=== PATIENT | female | born 1960 | race Hispanic/Latino ===

== ENCOUNTER 2017-12-25 10:21 | Outpatient (CLI) | payer MEDICARE ==
--- NOTE | 2017-12-25 12:16 | RAD ---
LATERAL AND FLEXION AND EXTENSION VIEWS OF THE LUMBAR SPINE: 12/25/2017 COMPARISON: 07/25/2015 FINDINGS: Three views of the lumbar spine demonstrate disk space height loss with some anterior osteophytes at L4-L5. No evidence of fractures or subluxations seen. No evidence of compression fracture seen. Estela mbar spine radiographs are unchanged since the previous exam from 07/25/2015. No evidence of acute c ompression fracture is seen. No evidence of vertebral body height loss is seen. Disk spaces are wel l maintained and unchanged. No evidence of anterolisthesis or retrolisthesis is seen on flexion or extension views. IMPRESSION: Stable three views of the lumbar spine with no evidence of anterolisthesis or retrolisthesis seen. POS: IFRAH
--- NOTE | 2017-12-25 13:02 | MRI ---
LUMBAR SPINE MRI WITHOUT CONTRAST: 12/25/2017 HISTORY: Bilateral leg pain. Lumbar spondylosis. COMPARISON: None. TECHNIQUE: Multiplanar, multisequence MR imaging of the lumbar spine is obtained without contrast. FINDINGS: The sagittal STIR imaging demonstrates no focal area of osseous marrow edema. Assuming five lumbar type vertebral bodies, the conus medullaris terminates at the T12-L1 level. No anterolisthesis or retrolisthesis is noted within the lumbar spine. T12-L1: Intervertebral disk height and signal intensity are within normal limits, with no significan t central canal or neural foraminal stenosis. L1-L2: Mild bilateral facet hypertrophy. Mild disk space narrowing and disk desiccation. No signif icant central canal or neural foraminal stenosis. L2-L3: Mild bilateral facet hypertrophy. Small left foraminal and post foraminal disk protrusion no tiffanie. Mild associated left neural foraminal stenosis. No central canal or right neural foraminal bren nosis. L3-L4: Mild bilateral facet hypertrophy. There is disk desiccation. There is an anterior annular t ear on the right. There is a foraminal and post foraminal disk protrusion on the left, with a mild degree of associated left neural foraminal stenosis. No significant central canal or right neural foraminal stenosis. L4-L5: There is disk space narrowing, disk desiccation, and disk bulge. There is prominent bilatera l facet hypertrophy, right greater than left. There is a moderate degree of central canal stenosis. There is moderate-severe right neural foraminal stenosis and mild left neural foraminal stenosis. L5-S1: Intervertebral disk height and signal intensity are within normal limits. Moderate bilateral facet hypertrophy. Mild/moderate right neural foraminal stenosis and mild left neural foraminal bren nosis. Mild central canal stenosis. The imaged retroperitoneal structures are grossly unremarkable. IMPRESSION: Multilevel lumbar spine degenerative change, most significant at the L4-L5 level, as detailed above. POS: OFF
== END 2017-12-25 10:22 | disposition home or self-care (01) ==
LOC: TBSIIMAG 10:21
PROVIDERS: ATTEND Neurological Surgery
DX: M47.896 Other spondylosis, lumbar region (principal); M48.061 Spinal stenosis, lumbar region without neurogenic claudication; M51.36 Other intervertebral disc degeneration, lumbar region
CPT/HCPCS: 72100; 72148

== ENCOUNTER 2022-06-14 07:37 | Outpatient (CLI) | payer MEDICARE | END 2022-06-14 07:38 | disposition home or self-care (01) | LOC: ULT 07:37 | PROVIDERS: ATTEND Family Medicine | DX: M79.89 Other specified soft tissue disorders (principal) ==

== ENCOUNTER 2024-04-11 15:37 | Outpatient (CLI) | payer MEDICARE | END 2024-04-11 15:38 | disposition home or self-care (01) | LOC: ULT 15:37 | PROVIDERS: ATTEND Family Medicine | DX: R31.9 Hematuria, unspecified (principal); N20.0 Calculus of kidney | CPT/HCPCS: 76770 ==

== ENCOUNTER 2025-05-08 13:01 | Emergency (ER) | payer BC, MEDICARE ==
[2025-05-08 14:52] LABS: #Basophils 0.03 10x3/uL (0.0-0.2); #Eosinophils 0.09 10x3/uL (0.0-0.7); #Monocytes 0.93 10x3/uL (0.11-0.59); #Neutrophils 9.71 10x3/uL (1.40-6.50); %Basophils 0.3 % (0.0-1.0); %Eosinophils 0.8 % (0.0-10.0); %Lymphocytes 9.6 % (21.0-51.0); %Monocytes 7.8 % (0.0-10.0); %Neutrophils 81.0 % (42.0-75.0); Hematocrit 30.0 % (36.0-47.0); Hemoglobin 9.7 g/dL (12.0-16.0); Mean Corpuscular Hemoglobin 28.7 pg (27.0-31.0); Mean Corpuscular Volume 88.8 fL (78.0-98.0); Platelet Count 166 10x3/uL (130-400); Red Blood Cell (RBC) Count 3.38 mill/uL (4.20-5.40); White Blood Cell (WBC) Count 11.97 10x3/uL (4.8-10.8)
[2025-05-08 15:09] LABS: ALT (SGPT) 31 U/L (Less than 34); AST (SGOT) 40 U/L (11-34); Albumin 3.8 g/dL (3.1-4.5); Alkaline Phosphatase 132 U/L (40-110); Anion Gap 14 mmol/L (10-20); BUN (Urea Nitrogen) 43 mg/dL (9.8-20.1); Bilirubin, Total 0.4 mg/dL (0.3-1.2); Calc. Creatinine Clearance 0 mL/min (70-130); Calcium 9.0 mg/dL (7.8-10.44); Carbon Dioxide 19 mmol/L (23-31); Chloride 108 mmol/L (98-107); Globulin 3.6 g/dL (2.4-3.5); Glucose 117 mg/dL (80-115); Potassium 5.0 mmol/L (3.5-5.1); Sodium 136 mmol/L (136-145)
[2025-05-08] MEDS ORDERED: Acetaminophen 500 MG TAB ONE (15:29)
== END 2025-05-08 15:40 | disposition home or self-care (01) ==
LOC: ERS 13:01
DX: M79.604 Pain in right leg (principal); M79.605 Pain in left leg; D53.9 Nutritional anemia, unspecified; M85.872 Other specified disorders of bone density and structure, left ankle and foot; I12.9 Hypertensive chronic kidney disease with stage 1 through stage 4 chronic kidney disease, or unspecified chronic kidney disease; E11.22 Type 2 diabetes mellitus with diabetic chronic kidney disease; N18.9 Chronic kidney disease, unspecified; E78.5 Hyperlipidemia, unspecified; Z55.6 Problems related to health literacy; Z79.84 Long term (current) use of oral hypoglycemic drugs; Z79.899 Other long term (current) drug therapy
CPT/HCPCS: 36415; 80053; 85025; 87081; 87430; 99284

== ENCOUNTER 2025-06-20 20:39 | Inpatient (IN) | payer BC, MEDICARE ==
[2025-06-20 23:00] VITALS: BMI 37.8
[2025-06-20] MEDS ORDERED: Calcium Carbonate 500 MG ChewTAB PO PRN (23:35)
[2025-06-20] MEDS ORDERED: Acetaminophen 325 MG TAB PO PRN (23:35)
[2025-06-20] MEDS ORDERED: Ondansetron PF 4 MG/2 ML Vial IVP PRN (23:35)
[2025-06-20] MEDS ORDERED: Dextrose 50% Abboject 50 ML SYRINGE SLOW IVP PRN (23:36)
[2025-06-20] MEDS ORDERED: Glucagon 1 MG/ML KIT IM PRN (23:36)
[2025-06-21 05:01] LABS: ALT (SGPT) 109 U/L (Less than 34); AST (SGOT) 73 U/L (11-34); Albumin 3.2 g/dL (3.1-4.5); Alkaline Phosphatase 178 U/L (40-110); Anion Gap 12 mmol/L (10-20); BUN (Urea Nitrogen) 44 mg/dL (9.8-20.1); Bilirubin, Total 0.5 mg/dL (0.3-1.2); Calc. Creatinine Clearance 27 mL/min (70-130); Calcium 8.9 mg/dL (7.8-10.44); Carbon Dioxide 21 mmol/L (23-31); Chloride 110 mmol/L (98-107); Globulin 2.9 g/dL (2.4-3.5); Glucose 73 mg/dL (80-115); Magnesium 2.4 mg/dL (1.6-2.6); Potassium 3.9 mmol/L (3.5-5.1); Sodium 139 mmol/L (136-145)
[2025-06-21 05:52] LABS: #Basophils 0.05 10x3/uL (0.0-0.2); #Eosinophils 0.11 10x3/uL (0.0-0.7); #Monocytes 0.78 10x3/uL (0.11-0.59); #Neutrophils 6.73 10x3/uL (1.40-6.50); %Basophils 0.6 % (0.0-1.0); %Eosinophils 1.2 % (0.0-10.0); %Lymphocytes 14.5 % (21.0-51.0); %Monocytes 8.6 % (0.0-10.0); %Neutrophils 74.7 % (42.0-75.0); Hematocrit 28.3 % (36.0-47.0); Hemoglobin 8.7 g/dL (12.0-16.0); Mean Corpuscular Hemoglobin 26.9 pg (27.0-31.0); Mean Corpuscular Volume 87.3 fL (78.0-98.0); Platelet Count 221 10x3/uL (130-400); Red Blood Cell (RBC) Count 3.24 mill/uL (4.20-5.40); White Blood Cell (WBC) Count 9.02 10x3/uL (4.8-10.8)
[2025-06-21] MEDS: Furosemide 40 MG (4 mL) VIAL SLOW IVP SCH (06:13)
[2025-06-21] MEDS: Cholecalciferol 1,000 UNITS (25 MCG) TAB PO SCH (10:52)
[2025-06-21] MEDS: Metoprolol Succinate XL 100 MG ER.TAB PO SCH (10:52)
[2025-06-21] MEDS: Calcitriol 0.25 MCG CAP PO SCH (10:52)
[2025-06-21] MEDS: cloNIDine 0.1 MG TAB PO SCH (10:53)
[2025-06-21] MEDS: Aspirin Chewable 81 MG TAB PO SCH (10:53)
[2025-06-21] MEDS: Heparin 5,000 UNITS/ML VIAL SC SCH (15:55)
[2025-06-21] MEDS: Insulin Glargine 30 UNITS/0.3 ML VIAL SC SCH (21:48)
[2025-06-22 04:26] LABS: #Basophils 0.05 10x3/uL (0.0-0.2); #Eosinophils 0.11 10x3/uL (0.0-0.7); #Monocytes 0.88 10x3/uL (0.11-0.59); #Neutrophils 5.39 10x3/uL (1.40-6.50); %Basophils 0.6 % (0.0-1.0); %Eosinophils 1.4 % (0.0-10.0); %Lymphocytes 19.8 % (21.0-51.0); %Monocytes 11.0 % (0.0-10.0); %Neutrophils 67.1 % (42.0-75.0); Hematocrit 29.1 % (36.0-47.0); Hemoglobin 8.9 g/dL (12.0-16.0); Mean Corpuscular Hemoglobin 26.6 pg (27.0-31.0); Mean Corpuscular Volume 87.1 fL (78.0-98.0); Platelet Count 230 10x3/uL (130-400); Red Blood Cell (RBC) Count 3.34 mill/uL (4.20-5.40); White Blood Cell (WBC) Count 8.03 10x3/uL (4.8-10.8)
[2025-06-22 05:05] LABS: Anion Gap 16 mmol/L (10-20); BUN (Urea Nitrogen) 49 mg/dL (9.8-20.1); Calc. Creatinine Clearance 24 mL/min (70-130); Calcium 8.7 mg/dL (7.8-10.44); Carbon Dioxide 24 mmol/L (23-31); Chloride 105 mmol/L (98-107); Glucose 125 mg/dL (80-115); Potassium 4.0 mmol/L (3.5-5.1); Sodium 141 mmol/L (136-145)
[2025-06-22] MEDS: EPOETIN ALFA-EPBX (ESRD) 10,000 UNITS/ML VIAL SC SCH (21:47)
[2025-06-23 03:54] LABS: #Basophils 0.08 10x3/uL (0.0-0.2); #Eosinophils 0.12 10x3/uL (0.0-0.7); #Monocytes 0.92 10x3/uL (0.11-0.59); #Neutrophils 5.86 10x3/uL (1.40-6.50); %Basophils 0.9 % (0.0-1.0); %Eosinophils 1.4 % (0.0-10.0); %Lymphocytes 18.8 % (21.0-51.0); %Monocytes 10.7 % (0.0-10.0); %Neutrophils 67.9 % (42.0-75.0); Hematocrit 31.0 % (36.0-47.0); Hemoglobin 9.4 g/dL (12.0-16.0); Mean Corpuscular Hemoglobin 26.7 pg (27.0-31.0); Mean Corpuscular Volume 88.1 fL (78.0-98.0); Platelet Count 236 10x3/uL (130-400); Red Blood Cell (RBC) Count 3.52 mill/uL (4.20-5.40); White Blood Cell (WBC) Count 8.63 10x3/uL (4.8-10.8)
[2025-06-23 04:11] LABS: Anion Gap 14 mmol/L (10-20); BUN (Urea Nitrogen) 46 mg/dL (9.8-20.1); Calc. Creatinine Clearance 26 mL/min (70-130); Calcium 9.1 mg/dL (7.8-10.44); Carbon Dioxide 25 mmol/L (23-31); Chloride 102 mmol/L (98-107); Glucose 80 mg/dL (80-115); Potassium 3.6 mmol/L (3.5-5.1); Sodium 137 mmol/L (136-145)
[2025-06-23] MEDS: Furosemide 40 MG (4 mL) VIAL SLOW IVP SCH (08:53)
[2025-06-23 15:33] VITALS: TEMP 97.4
[2025-06-23 15:36] VITALS: BP 128/65
== END 2025-06-23 17:17 | disposition home or self-care (01) | DRG 292 ==
LOC: PCU 22:17
PROVIDERS: ADMIT Student in an Organized Health Care Education/Training Program; ATTEND Hospitalist
DX: I50.33 Acute on chronic diastolic (congestive) heart failure (principal); I12.0 Hypertensive chronic kidney disease with stage 5 chronic kidney disease or end stage renal disease; N17.9 Acute kidney failure, unspecified; N18.5 Chronic kidney disease, stage 5; E11.22 Type 2 diabetes mellitus with diabetic chronic kidney disease; E78.5 Hyperlipidemia, unspecified; D63.1 Anemia in chronic kidney disease; K21.9 Gastro-esophageal reflux disease without esophagitis; E11.42 Type 2 diabetes mellitus with diabetic polyneuropathy; E88.09 Other disorders of plasma-protein metabolism, not elsewhere classified; M54.30 Sciatica, unspecified side; F32.A Depression, unspecified; Z79.899 Other long term (current) drug therapy; Z79.84 Long term (current) use of oral hypoglycemic drugs; Z79.4 Long term (current) use of insulin; Z98.890 Other specified postprocedural states; Z90.710 Acquired absence of both cervix and uterus; Z90.722 Acquired absence of ovaries, bilateral
CPT/HCPCS: 36415; 36416; 80048; 80053; 83036; 83735; 83880; 83970; 84100; 84443; 85025; 93306; 93798; J1644; J1815; J1940; Q5105